=== PATIENT | female | born 1960 | race Caucasian/White ===

== ENCOUNTER 2016-08-16 10:11 | Emergency (ER) | payer OTHER ==
[~2016-08-16] VITALS: Ht 152.4 cm; Wt 77.0 kg
[~2016-08-16 10:11] MED LIST: CYCL-319 PO; HYDR-3498 PO; IBUP-1542 PO
[2016-08-16 10:21] VITALS: Ht 152.4 cm; Wt 77.0 kg
[2016-08-16] MEDS ORDERED: ONDANSETRON (ODT) 4 MG TAB ODT STA (11:22)
[2016-08-16] MEDS ORDERED: MECLIZINE 12.5 MG TAB PO ONE (11:30)
[2016-08-16 11:40] LABS: URINE BLOOD (Dip) POC Trace-intact (NEGATIVE)
--- NOTE | 2016-08-16 12:17 | RADRPT ---
PROCEDURE: CT Brain without. CLINICAL INDICATION: Dizziness. Headache. TECHNIQUE: A CT of the brain was performed on a multi-slice CT scanner utilizing axial sections fr om the skull base through the vertex without contrast. Coronal and sagittal reconstructed images w ere provided. One or more of the following does reduction techniques were used: Automated exposure control; adjustment of the mA and/or kV according to patient size; use of the aorta of reconstructi on technique. Images were reviewed on a high-resolution PACS workstation. The exam CTDI = 43.05 mGy . The exam DLP = 630.2 mGy-cm. COMPARISON: None available FINDINGS: There is mild global volume loss. The ventricles and sulci are symmetric in size and morphology. T here is no evidence of intracranial hemorrhage, mass effect, edema or midline shift. No abnormal in tra-axial or extra-axial fluid collections are seen. The mitchell/white matter differentiation is well preserved. The osseous structures and visualized sinuses are unremarkable. The mastoid air cells are clear. Th e surrounding soft tissue scalp and bony calvarium are intact and normal. IMPRESSION: 1. No CT evidence of acute intracranial pathology. 2. Mild global volume loss. RPTAT: HJBF .Sb Pleitez MD, MD Date Time Electronically viewed and signed by .Sb Pleitez MD, MD on 08/16/2016 12:17 .B/
--- NOTE | 2016-08-16 12:27 | ERD ---
ER Documentation Chief Complaint Date/Time DATE: 08/16/16 TIME: 12:23 Chief Complaint Pt presents with dizzy (room spinning) and nausea since yesterday HPI 56-year-old female presents with a one-day history of nausea, dizziness. The dizziness is a spinning type dizziness worse with movement. She has difficulty maintaining her balance while walking. Patient denies any history of trauma or recent illnesses. Patient denies any weakness, no changes, neck pain, bowel or bladder incontinence. Patient is concerned because her mother had a stroke and she takes care of her. ROS All systems reviewed and are negative except as per history of present illness. Medications Home Meds Active Scripts Cyclobenzaprine Hcl* (Cyclobenzaprine Hcl*) 10 Mg Tablet, 5 MG PO TID, #15 TAB Prov:YASH KEANE STAFF DEVELOPMENT NURSE 04/17/15 Ibuprofen* (Motrin*) 600 Mg Tab, 600 MG PO Q6H Y for PAIN AND OR ELEVATED TEMP, #30 TAB Prov:YASH KEANE STAFF DEVELOPMENT NURSE 04/17/15 Hydrocodone Bit-Acetaminophen* (Jasper*) 5-325 Mg Tab, 1 TAB PO Q6 Y for PAIN, # 20 TAB Prov:YASH KEANE STAFF DEVELOPMENT NURSE 04/17/15 Reported Medications [none] Unknown Strength No Conflict Check 04/17/15 Allergies Allergies: Uncoded Allergies: SEA FOODS (Allergy, Unknown, 04/17/15) PMhx/Soc History of Surgery: Yes (BILATERAL OOPHRECTOMY) Anesthesia Reaction: No Hx Neurological Disorder: No Hx Respiratory Disorders: No Hx Cardiac Disorders: Yes (HTN) Hx Psychiatric Problems: No Hx Miscellaneous Medical Probl: Yes (CHRONIC BACK PAIN. GERD) Hx Alcohol Use: No Hx Substance Use: No Hx Tobacco Use: No Smoking Status: Never smoker Physical Exam Vitals Vital Signs Date Time Temp Pulse Resp B/P Pulse Ox O2 Delivery O2 Flow Rate FiO2 08/16/16 10:21 97.9 63 14 159/70 98 Physical Exam Const: [] Alert, [id number]. Head: Atraumatic Eyes: Normal Conjunctiva. Eyes are PERRLA and extraocular movements intact. ENT: Normal External Ears, Nose and Mouth. Neck: Full range of motion..~ No meningismus. Resp: Clear to auscultation bilaterally Cardio: Regular rate and rhythm, no murmurs Abd: Soft, non tender, non distended. Normal bowel sounds Skin: No petechiae or rashes Back: No midline or flank tenderness Ext: No cyanosis, or edema Neur: Awake and alert. No appreciable cerebellar signs. Cranial nerves II through XII grossly intact. Positive reproducible vertigo to the right. Psych: Normal Mood and Affect Results 24 hrs Laboratory Tests Test 08/16/16 11:43 08/16/16 11:45 Bedside Glucose 123mg/dL Bedside Urine pH (LAB) 7.0 Bedside Urine Protein (LAB) Negative Bedside Urine Glucose (UA) Negative Bedside Urine Ketones (LAB) Negative Bedside Urine Blood Trace-intact Bedside Urine Nitrite (LAB) Negative Bedside Urine Leukocyte Esterase (L Trace Current Medications Medications (Trade) Dose Ordered Sig/Mazin Route PRN Reason Start Time Stop Time Status Last Admin Dose Admin Meclizine HCl (Antivert) 25 mg ONCE ONCE PO 08/16/16 11:30 08/16/16 11:31 DC 08/16/16 11:39 Ondansetron HCl (Zofran Odt) 8 mg ONCE STAT ODT 08/16/16 11:22 08/16/16 11:24 DC 08/16/16 11:39 Procedures/MDM Accu-Chek is 123. Urine is positive for trace leukocytes but no other acute findings. Patient presents with reproducible peripheral vertigo. Patient is concerned that her mother had a stroke in started with similar symptoms. Patient is requesting further evaluation. Patient was administered a CT brain which shows no acute findings despite counseling on risk of radiation. Patient will be treated with Zofran and Antivert and further observation at home. The patient was stable with no new complaints during the ER course. Clinically, there is no current evidence to suggest meningitis, sepsis, acute abdomen, pneumonia, acute coronary syndrome, pulmonary embolism, or any other emergent condition appearing to require further evaluation or hospitalization. The patient should certainly return for any new or worsening symptoms per the aftercare instructions. They should otherwise follow-up with her primary care doctor for reevaluation this week. Departure Condition: Stable KEENAN CABALLERO MD Aug 16, 2016 12:26
[2016-08-16] MEDS ORDERED: MECL-77 PO (12:28)
[2016-08-16] MEDS ORDERED: ONDA8TAB14 PO (12:28)
[2016-08-16 12:47] VITALS: BP 115/61; PULSE 59; RESP 16
== END 2016-08-16 12:48 | disposition home or self-care (01) ==
LOC: FTE 10:11
DX: H81.391 Other peripheral vertigo, right ear (principal); I10 Essential (primary) hypertension
CPT/HCPCS: 70450; 81003; 82962; Z7502; Z7610